=== PATIENT | born 2000 | race Caucasian/White ===

== ENCOUNTER 2021-06-21 15:16 | Inpatient (IN) | payer MEDICAID, OTHER ==
--- NOTE | 2021-06-21 16:06 | ED ---
Psych HPI - General Source: patient, RN notes reviewed Mode of arrival: ambulatory Limitations: no limitations <Brian Martinez - Last Filed: 06/21/21 16:05> <Jhoan Carlos - Last Filed: 06/21/21 22:23> - General Chief Complaint: Psychiatric Symptoms Stated Complaint: Mental Health - History of Present Illness Initial Comments: 21-year-old presents emergency department for psychiatric treatment. Patient states that been having increasing depression recently having suicidal thoughts states plan was to [place] himself [place]. Patient states she's been multiple psychiatric medication has not been on recently. Patient occasionally uses marijuana no other illicit drug use. Rare alcohol use. Patient has no physical complaints. (Brian Martinez) - Related Data Home Medications Medication Instructions Recorded Confirmed Levothyroxine Sodium [Synthroid] 75 mcg PO DAILY 06/21/21 06/21/21 Allergies Allergy/AdvReac Type Severity Reaction Status Date / Time quetiapine [From Seroquel] AdvReac tachycardia Verified 06/21/21 20:45 Review of Systems ROS Other: All systems not noted in ROS Statement are negative. <Brian Martinez - Last Filed: 06/21/21 16:05> ROS Other: All systems not noted in ROS Statement are negative. <Jhoan Carlos - Last Filed: 06/21/21 22:23> ROS Statement: Those systems with pertinent positive or pertinent negative responses have been documented in the HPI. Past Medical History Past Medical History: Thyroid Disorder History of Any Multi-Drug Resistant Organisms: None Reported Past Surgical History: No Surgical Hx Reported Past Psychological History: Anxiety, Depression, Schizoaffective Disorder Smoking Status: Current every day smoker Past Alcohol Use History: Occasional Past Drug Use History: Marijuana <Brian Martinez - Last Filed: 06/21/21 16:05> General Exam Limitations: no limitations <Brian Martinez - Last Filed: 06/21/21 16:05> Course Vital Signs 06/21/21 16:00 Temperature 98.0 F Pulse Rate 84 Respiratory 20 Rate Blood Pressure 127/69 O2 Sat by Pulse 100 Oximetry Medical Decision Making <Jhoan Carlos - Last Filed: 06/21/21 22:23> - Medical Decision Making The patient was seen and examined. Urine drug screen is negative. It is felt as though he is medically cleared for further psychiatric evaluation and treatment. The case is discussed with the psychiatric nurse and they would like to admit the patient to the hospital for further treatment. Patient is agreeable with this plan as well and signs and voluntarily. (Jhoan Carlos) - Lab Data Lab Results 06/21/21 Range/Units 19:30 Urine Opiates Screen Not Detected (NotDetected) Ur Oxycodone Screen Not Detected (NotDetected) Urine Methadone Screen Not Detected (NotDetected) Ur Propoxyphene Screen Not Detected (NotDetected) Ur Barbiturates Screen Not Detected (NotDetected) U Tricyclic Antidepress Not Detected (NotDetected) Ur Phencyclidine Scrn Not Detected (NotDetected) Ur Amphetamines Screen Not Detected (NotDetected) U Methamphetamines Scrn Not Detected (NotDetected) U Benzodiazepines Scrn Not Detected (NotDetected) Urine Cocaine Screen Not Detected (NotDetected) U Marijuana (THC) Screen Not Detected (NotDetected) Disposition <Brian Martinez - Last Filed: 06/21/21 16:05> Is patient prescribed a controlled substance at d/c from ED?: No Time of Disposition: 22:23 Decision Date: 06/21/21 Decision Time: 22:23 <Jhoan Carlos - Last Filed: 06/21/21 22:23> Clinical Impression: Depression, Suicidal ideation Disposition: ADMITTED IP TO THIS HOSP Condition: Fair Referrals: None,Stated [Primary Care Provider] - 1-2 days
[2021-06-21 20:14] LABS: Amphetamine Screen,Urine Not Detected (NotDetected); Barbiturate Screen,Urine Not Detected (NotDetected); Benzodiazepines Screen,Urine Not Detected (NotDetected); Cocaine Screen,Urine Not Detected (NotDetected); Methadone Screen, Urine Not Detected (NotDetected); Opiate Screen,Urine Not Detected (NotDetected); Oxycodone Screen, Urine Not Detected (NotDetected); Phencyclidine Screen,Urine Not Detected (NotDetected); Tricyclic Antidepressant,Urine Not Detected (NotDetected); Urn Cannabinoid Scrn Not Detected (NotDetected)
[2021-06-21] MEDS ORDERED: MAG HYDROX/AL HYDROX/SIMETH 30 ML CUP PO PRN (23:29)
[2021-06-21] MEDS ORDERED: MAGNESIUM HYDROXIDE 2,400 MG/10 ML CUP PO PRN (23:29)
[2021-06-21] MEDS ORDERED: ACETAMINOPHEN TAB 325 MG TAB PO PRN (23:29)
[2021-06-21] MEDS ORDERED: traZODone HCL 50 MG TAB PO PRN (23:35)
[2021-06-21] MEDS ORDERED: haloperidoL 5 MG TAB PO PRN (23:35)
[2021-06-21] MEDS ORDERED: HALOPERIDOL LACTATE 5 MG/ML 1 ML VIAL IM PRN (23:35)
[2021-06-21] MEDS ORDERED: LORazepam 2 MG/ML INJ IM PRN (23:35)
--- NOTE | 2021-06-22 01:13 | P.MDCNMH ---
History of Present Illness H&P Date: 06/22/21 Chief Complaint: medical evaluation 21 year old with mental health medical history of depression, anxiety, schizophrenia , and medical history of hashimotos wtih hypothyroid, and asthma comes in today for suicidal ideation and depression . patient admits to not being compliant with his meds. otherwise denies any medical concerns at this time, denies any fever, chills, URI symptoms, chest pain , SOB, abd pain , nausea or vomiting Review of Systems Pertinent positives as noted in HPI. All other systems were reviewed and are negative Past Medical History Past Medical History: Thyroid Disorder History of Any Multi-Drug Resistant Organisms: None Reported Past Surgical History: No Surgical Hx Reported Past Psychological History: Anxiety, Depression, Schizoaffective Disorder Smoking Status: Never smoker Past Alcohol Use History: Occasional Past Drug Use History: Marijuana - Past Family History Family Family Medical History: No Reported History Medications and Allergies Home Medications Medication Instructions Recorded Confirmed Type Levothyroxine Sodium [Synthroid] 75 mcg PO DAILY 06/21/21 06/21/21 History Allergies Allergy/AdvReac Type Severity Reaction Status Date / Time quetiapine [From Seroquel] AdvReac tachycardia Verified 06/21/21 20:45 Physical Exam Vitals: Vital Signs Temp Pulse Pulse Resp BP BP Pulse Ox 06/22/21 00:17 98.3 F 72 18 122/68 100 06/21/21 16:00 98.0 F 84 20 127/69 100 Intake and Output 06/21/21 06/21/21 06/22/21 14:59 22:59 06:59 Other: Weight 54.431 kg 54 kg Constitutional: No acute distress, conversant, pleasant Eyes: Anicteric sclerae, moist conjunctiva, Pupils equal round reactive to light ENMT: NC/AT Oropharynx clear, no erythema, or exudates Neck: Supple, no masses, or JVD No carotid bruits No thyromegaly Lungs: Clear to auscultation Clear to percussion Normal respiratory effort, no accessory muscle use Cardiovascular: Heart regular in rate and rhythm, No murmurs, gallops, or rubs No peripheral edema Abdominal: Soft Nontender, no guarding, rebound or rigidity Abdomen moving with respiration Normoactive bowel sounds No hepatomegaly, No splenomegaly No palpable mass No abdominal wall hernia noted Skin: Normal temperature, tone, texture, turgor No induration No subcutaneous nodules No rash, lesions No ulcers Extremities: No digital cyanosis No clubbing Pedal pulses intact and symmetrical Radial pulses intact and symmetrical No calf tenderness Psychiatric: Alert and oriented to person, place and time Neuro Muscles Strength 5/5 in all 4 extremities Sensation to light touch grossly present throughout Cranial nerves II-XII grossly intact No focal sensory deficits Lymphatics: no palpable cervical or supraclavicular , or inguinal lymph nodes Cranial Nerve Examination - Cranial Nerves Cranial Nerve II- Optic: Intact Cranial Nerve III- Oculomotor: Intact Cranial Nerve IV- Trochlear: Intact Cranial Nerve V- Trigeminal: Intact Cranial Nerve - Abducens: Intact Cranial Nerve VII- Facial: Intact Cranial Nerve VIII- Auditory: Intact Cranial Nerve IX- Glossopharyngeal: Intact Cranial Nerve X- Vagus: Intact Cranial Nerve XI- Accessory: Intact Cranial Nerve XII- Hypoglossal: Intact Assessment and Plan Assessment: Depression and suicidal ideation Management per psych Hypothyroid with history of Shemar's thyroiditis Continue with levothyroxine Intermittent asthma proair inhalers as needed Follow-up labs Thank you for allowing us to participate in the care of this patient. We will follow peripherally. Do not hesitate to contact us with questions. Someone can be reached from the [facility] hospitalist group at all hours of the day at [phone].
[2021-06-22] MEDS ORDERED: ALBUTEROL INHALER 60 PUFF/8 GM INHALER (MHU) INHALATION PRN (01:15)
[2021-06-22] MEDS: LEVOTHYROXINE 75 MCG TAB PO SCH (06:30)
[2021-06-22] MEDS: NICOTINE 14MG/24HR PATCH TRANSDERM SCH (08:16)
[2021-06-22 09:18] LABS: Basophils # (A) 0.1 k/uL (0-0.2); Basophils % (A) 1 %; Eosinophils # (A) 0.2 k/uL (0-0.7); Eosinophils % (A) 2 %; HCT 41.3 % (39.0-53.0); HGB 13.3 gm/dL (13.0-17.5); Lymphocytes % (A) 41 %; MCH 29.8 pg (25.0-35.0); MCHC 32.1 g/dL (31.0-37.0); MCV 92.8 fL (80.0-100.0); Mean Platelet Volume 7.5; Monocytes # (A) 0.5 k/uL (0-1.0); Monocytes % (A) 7 %; Neutrophils # (A) 3.4 k/uL (1.3-7.7); Neutrophils % (A) 46 %; Platelet Count 424 k/uL (150-450); RBC 4.45 m/uL (4.30-5.90); RDW 11.6 % (11.5-15.5); WBC 7.3 k/uL (3.8-10.6)
[2021-06-22 09:28] LABS: ALT 16 U/L (4-49); AST 24 U/L (17-59); African American GFR (CKD) 143 (>60 ml/min/1.73 sqM); Albumin 4.5 g/dL (3.5-5.0); Alkaline Phosphatase 48 U/L (38-126); Anion Gap 10 mmol/L; Blood Urea Nitrogen 8 mg/dL (9-20); Calcium 10.2 mg/dL (8.4-10.2); Carbon Dioxide 25 mmol/L (22-30); Chloride 106 mmol/L (98-107); Glucose 132 mg/dL (74-99); Non-African American GFR(CKD) 124 (>60 ml/min/1.73 sqM); Potassium 4.8 mmol/L (3.5-5.1); Sodium 141 mmol/L (137-145); Total Bilirubin 0.9 mg/dL (0.2-1.3); Total Protein 7.8 g/dL (6.3-8.2)
[2021-06-22] MEDS ORDERED: SERTRALINE 25 MG TAB PO STA (10:09)
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
[2021-06-22 14:29] LABS: Chol/HDL Ratio 3.65 Ratio; LDL Cholesterol,Calculated 80.3 mg/dL (0.0-131.0); VLDL Calculation 17.68 mg/dL (5.00-40.00)
[2021-06-22] MEDS ORDERED: PRAZOSIN 1 MG CAP PO SCH (21:00)
[2021-06-23] MEDS: LEVOTHYROXINE 75 MCG TAB PO SCH (06:37)
[2021-06-23] MEDS: NICOTINE 14MG/24HR PATCH TRANSDERM SCH (08:44)
[2021-06-23] MEDS ORDERED: SERTRALINE 50 MG TAB PO SCH (09:00)
--- NOTE | 2021-06-23 09:43 | P.PN ---
Progress Note - Text Progress Note Date: 06/23/21 Interval History: Patient was seen resting in bed and was directable and agreeable to speak with rfp writer in their room. Currently, the patient is not endorsing any suicidal or homicidal ideation, intention, and/or plan. They report no auditory or visual hallucinations. The patient does report that they have been feeling some nausea secondary to trazodone. Otherwise the patient is not reporting any significant issues. They do report that it took some time to fall asleep however once asleep, the patient was able to sleep through the night. They deny any issues regarding appetite. Mental Status Exam: General Appearance: Patient appears to be stated age is alert, directable, and cooperative. Multiple tattoos. Notable facial hair. Behavior: Patient is calmly seated without any agitated behavior. Speech: Patient's speech is fluent and nonpressured. Mood/Affect: Mood is improving mildly, affect is congruent and constricted. Suicidality/Homicidality: Patient denies having any suicidal or homicidal ideation intent or plan. Perceptions: Patient denies any visual hallucinations and denies any auditory hallucinations Though content/process: There is no evidence of any delusional thought content and thought process is linear and goal-directed. Memory and concentration: AOX3, grossly intact for the purposes of this session Judgment and insight: Improving mildly Vital Signs Temp 98.1 F 06/22/21 08:16 Pulse 95 06/22/21 21:53 Resp 16 06/22/21 21:53 BP 125/82 06/22/21 21:53 Pulse Ox 99 06/22/21 21:53 Laboratory Results - Last 24 Hours 06/22/21 06/22/21 08:50 08:[address] Glu mg/dL 100 Triglycerides 88.40 Cholesterol 135.00 LDL Cholesterol, Calc 80.3 VLDL Cholesterol, Calc 17.68 HDL Cholesterol 37.00 L Cholesterol/HDL Ratio 3.65 TSH 6.330 H Assessment Major depressive disorder, recurrent, severe Posttraumatic stress disorder Gender dysphoria Cluster B personality disorder Plan: -Patient continues to meet criteria for inpatient psychiatric admission for symptom stabilization and safety. Patient has signed adult voluntary form and medication consent and was placed in patient's chart. -Medications: Zoloft will be increased to 50 mg by mouth daily for depression/anxiety/PTSD Prazosin will be increased to 2 mg daily at bedtime for PTSD related nightmares Discontinue trazodone due to nausea -We will add Zofran as needed for nausea -When necessary Ativan and Haldol for agitation/aggression. -SW on board for discharge planning. Encouraged the patient to participate in milieu.
[2021-06-23] MEDS: ONDANSETRON 4 MG TAB PO PRN (10:05)
[2021-06-23] MEDS: PRAZOSIN 1 MG CAP PO SCH (20:57)
[2021-06-23] MEDS: LORazepam 1 MG TAB PO PRN (23:14)
[2021-06-24] MEDS ORDERED: SERTRALINE 25 MG TAB PO SCH (09:00)
[2021-06-24] MEDS: NICOTINE 14MG/24HR PATCH TRANSDERM SCH (09:02)
[2021-06-24] MEDS: ONDANSETRON 4 MG TAB PO PRN (09:04)
[2021-06-24] MEDS: LEVOTHYROXINE 50 MCG TAB PO SCH ×2 (09:05→09:24)
[2021-06-24] MEDS ORDERED: SERTRALINE 50 MG TAB PO STA (09:32)
--- NOTE | 2021-06-24 11:10 | P.PN ---
Progress Note - Text Progress Note Date: 06/24/21 Interval History: Patient was seen resting in bed and was directable and agreeable to speak with instructional writer in the office. The patient reports they had experienced nausea again last night. Along with the nausea the patient experiences palpitations. Heart rate last night was noted to be 130 BPM. The symptoms were alleviated with the administration of ativan. The patient reports no suicidal or homicidal ideation, intention, and/or plan. They state they had thoughts during the panic attack but none currently. They report no auditory or visual hallucinations. They deny any side effects of the medications at this time. Mental Status Exam: General Appearance: Patient appears to be stated age is alert, directable, and cooperative. Multiple tattoos. Notable facial hair. Wearing a onesie. Behavior: Patient is calmly seated without any agitated behavior. Speech: Patient's speech is fluent and nonpressured. Mood/Affect: Mood is improving mildly, affect is congruent and constricted. Suicidality/Homicidality: Patient denies having any suicidal or homicidal ideation intent or plan. Perceptions: Patient denies any visual hallucinations and denies any auditory hallucinations Though content/process: There is no evidence of any delusional thought content and thought process is linear and goal-directed. Memory and concentration: AOX3, grossly intact for the purposes of this session Judgment and insight: Improving mildly Vital Signs Temp 97.8 F 06/23/21 10:22 Pulse 130 06/23/21 23:00 Resp 16 06/23/21 23:00 BP 111/76 06/23/21 23:00 Pulse Ox 98 06/23/21 23:00 Laboratory Results - Last 24 Hours 06/22/21 08:50 Free T4 1.830 H Assessment Major depressive disorder, recurrent, severe Posttraumatic stress disorder Panic Disorder Gender dysphoria Cluster B personality disorder Plan: -Patient continues to meet criteria for inpatient psychiatric admission for symptom stabilization and safety. Patient has signed adult voluntary form and medication consent and was placed in patient's chart. -Medications: Zoloft will be increased to 150 mg by mouth daily for depression/anxiety/PTSD Prazosin will be continued at 2 mg daily at bedtime for PTSD related nightmares -We will add Zofran as needed for nausea -When necessary Ativan and Haldol for anxiety/agitation/aggression. -SW on board for discharge planning. Encouraged the patient to participate in milieu.
[2021-06-24] MEDS: PRAZOSIN 1 MG CAP PO SCH (21:14)
[2021-06-24] MEDS: LORazepam 1 MG TAB PO PRN (21:14)
[2021-06-25] MEDS: LEVOTHYROXINE 50 MCG TAB PO SCH (06:03)
[2021-06-25] MEDS: SERTRALINE 50 MG TAB PO SCH (09:50)
[2021-06-25] MEDS: NICOTINE 14MG/24HR PATCH TRANSDERM SCH (09:50)
--- NOTE | 2021-06-25 11:22 | P.PN ---
Progress Note - Text Progress Note Date: 06/25/21 Interval History: Patient was seen resting in bed and was directable and agreeable to speak with production underwriter in the office. Patient reports that they are suicidal with a plan to hang himself this weekend. They state that this was the initial plan as they were going to hang himself once their went to work and the patient is able to withdraw the money that his aide to them to leave to their . The patient expresses significant concern for discharge. They state they are unable to keep safe this weekend. The patient reports elevated anxiety. They otherwise deny any auditory or visual hallucinations. They report no homicidal ideation, intention, and/or plan. No side effects of the medications are endorsed today. Mental Status Exam: General Appearance: Patient appears to be stated age is alert, directable, and cooperative. Multiple tattoos. Notable facial hair. Behavior: Patient is calmly seated without any agitated behavior. Speech: Patient's speech is fluent and nonpressured. Mood/Affect: Mood is improving mildly, affect is congruent and constricted. Suicidality/Homicidality: Patient endorses suicidal ideation with a plan. No homicidal ideation. Perceptions: Patient denies any visual hallucinations and denies any auditory hallucinations Though content/process: There is no evidence of any delusional thought content and thought process is linear and goal-directed. Memory and concentration: AOX3, grossly intact for the purposes of this session Judgment and insight: Improving mildly Vital Signs Temp 97.8 F 06/23/21 10:22 Pulse 74 06/24/21 21:11 Resp 16 06/24/21 21:11 BP 126/74 06/24/21 21:11 Pulse Ox 100 06/24/21 21:11 Laboratory Results - Last 24 Hours 06/22/21 08:50 Hemoglobin A1c 5.1 Assessment Major depressive disorder, recurrent, severe Posttraumatic stress disorder Panic Disorder Gender dysphoria Cluster B personality disorder Plan: -Patient continues to meet criteria for inpatient psychiatric admission for symptom stabilization and safety. Patient has signed adult voluntary form and medication consent and was placed in patient's chart. -Medications: Zoloft will be increased to 150 mg by mouth daily for depression/anxiety/PTSD and titrated to 200 mg over the weekend. Prazosin will be continued at 2 mg daily at bedtime for PTSD related nightmares -We will add Zofran as needed for nausea -When necessary Ativan and Haldol for anxiety/agitation/aggression. -SW on board for discharge planning. Encouraged the patient to participate in milieu.
[2021-06-25] MEDS: LORazepam 1 MG TAB PO PRN (20:44)
[2021-06-25] MEDS: PRAZOSIN 1 MG CAP PO SCH (20:44)
[2021-06-26] MEDS: LEVOTHYROXINE 50 MCG TAB PO SCH (06:46)
[2021-06-26] MEDS: SERTRALINE 50 MG TAB PO SCH (09:04)
[2021-06-26] MEDS: NICOTINE 14MG/24HR PATCH TRANSDERM SCH (09:04)
--- NOTE | 2021-06-26 21:00 | PN ---
PROGRESS NOTE DATE OF SERVICE: 06/26/2021. CHIEF COMPLAINT: The patient was admitted for depression, anxiety and suicidal thinking. INTERVAL HISTORY: The patient has been doing fair. He had a quiet day yesterday. He comes out on the unit. He wanders about. He will interact with others. He has been cooperative with care. He attends groups and seems to engage well in groups. He said he slept fair last night. Today he has been up and overall doing about the same. His main complaint is that he feels the Zoloft has caused him a lot of side effects. He says he gets highly anxious, he gets some GI distress, he gets tremor. He declined taking the Zoloft today. He accepts the idea that he has a diagnosis of depression and could see that an antidepressant would be a critical medication for him, though he does feel that Zoloft has been causing him too many problems that he simply cannot tolerate. He does say that he had been on Lexapro perhaps about a year ago and felt that that medication was helpful for him. He would be willing to start Lexapro or consider an alternative. MENTAL STATUS EXAM: Patient was somewhat restless. He gave good eye contact. He answered questions appropriately. His thoughts were clear, coherent and goal-directed. He was spontaneous and interactive. His affect was somewhat constricted. He had an anxious manner. His mood was depressed. He was moderately distressed. There was no indication of thought disorder. He voiced no thoughts of harm. Cognition was clear. ASSESSMENT: I will continue the current diagnosis and treatment plan. The patient has been making a good effort in the group situations. He is declining to be continued on Zoloft. I will discontinue Zoloft and start Lexapro 10 mg a day; he will receive his first dose in the morning. I reviewed medication issues with the patient, including indications, potential side effects and general treatment process. I also reviewed that the success rate with antidepressants does have some limitations and he may need to be tried on alternatives to find a medication that is fully effective for him. It is not unreasonable to continue with Lexapro as an alternative. We will focus on stabilization and discharge planning. MARCELLE / ELODIAN: [id number] /
[2021-06-26] MEDS: LORazepam 1 MG TAB PO PRN (21:31)
[2021-06-26] MEDS: PRAZOSIN 1 MG CAP PO SCH (21:31)
[2021-06-27] MEDS: LEVOTHYROXINE 50 MCG TAB PO SCH (06:32)
[2021-06-27] MEDS: ESCITALOPRAM 10 MG TAB PO SCH (08:51)
[2021-06-27] MEDS: NICOTINE 14MG/24HR PATCH TRANSDERM SCH (08:51)
[2021-06-27] MEDS ORDERED: SERTRALINE 100 MG TAB PO SCH (09:00)
--- NOTE | 2021-06-27 13:51 | PN ---
PROGRESS NOTE DATE OF SERVICE: 06/27/2021. CHIEF COMPLAINT: The patient was admitted for depression, anxiety and suicidal. INTERVAL HISTORY: Patient has been doing fair. He had a quiet day yesterday. He comes out on the unit. He does interact with others. He has been attending groups and seems to engage in a positive way in the groups. He said he had a fair evening last night. He slept reasonably well. Today he has been up. He received his first dose of Lexapro today. He has not had any problems with the start of Lexapro. It is noted that we switched from Zoloft to Lexapro as he declined the Zoloft yesterday because of a range of side effects including GI and other issues. He said that he had been on Lexapro in the past and did not recall any difficulties he had with the medication. He also thought it had been helpful in the past. MENTAL STATUS EXAM: Patient gave a good eye contact. He answered questions with direct responses. His thoughts were clear. He was spontaneous. His affect was a little blunted. His mood was quiet. He did not appear to be significantly distressed. There was no indication of thought disorder. Cognition was clear. ASSESSMENT: I will continue the current diagnosis and treatment plan. The patient received his 1st dose of direct Lexapro. I discussed that there might be consideration after a few days on Lexapro to increase the dose to 20 mg a day or potentially continue in 10 mg and defer to outpatient follow. We discussed the treatment process with antidepressants. We will focus on stabilization and discharge planning. MMCHANEL / ANTHONY: [id number] /
[2021-06-27] MEDS: polyethylene glycoL 3350 17 GM POWD.PACK PO SCH (14:01)
[2021-06-27] MEDS: PRAZOSIN 1 MG CAP PO SCH (20:47)
[2021-06-27] MEDS: LORazepam 1 MG TAB PO PRN (20:47)
[2021-06-28] MEDS: LEVOTHYROXINE 50 MCG TAB PO SCH (06:23)
[2021-06-28] MEDS: NICOTINE 14MG/24HR PATCH TRANSDERM SCH (08:54)
[2021-06-28] MEDS: ESCITALOPRAM 10 MG TAB PO SCH (08:55)
[2021-06-28] MEDS: polyethylene glycoL 3350 17 GM POWD.PACK PO SCH (08:55)
[2021-06-28 08:56] VITALS: BP 115/60; PULSE 77; RESP 16; TEMP 97.2
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
== END 2021-06-28 13:45 | disposition home or self-care (01) | DRG 880 ==
LOC: EC 15:16 → 3MHU 22:40
PROVIDERS: ADMIT Psychiatry & Neurology Psychiatry; ATTEND Psychiatry & Neurology Psychiatry
DX: R45.851 Suicidal ideations (principal); F33.2 Major depressive disorder, recurrent severe without psychotic features; F25.9 Schizoaffective disorder, unspecified; F43.10 Post-traumatic stress disorder, unspecified; F64.0 Transsexualism; F60.89 Other specific personality disorders; Z62.810 Personal history of physical and sexual abuse in childhood; Z91.51 Personal history of suicidal behavior; Z91.14 Patient's other noncompliance with medication regimen; Z20.822 Contact with and (suspected) exposure to COVID-19
CPT/HCPCS: 80053; 80061; 80306; 82075; 83036; 84439; 84443; 85025; 87635; 99285

== ENCOUNTER → 2021-09-20 | Outpatient (CLI) | payer SELFPAY ==
[2021-09-20 18:50] LABS: Blood Urea Nitrogen 10.3 mg/dL (9.0-27.0); Chol/HDL Ratio 4.06 Ratio; Glucose 85 mg/dL (70-110); VLDL Calculation 17.24 mg/dL (5.00-40.00)
== END | disposition home or self-care (01) ==
LOC: LABWHC1 13:53
PROVIDERS: ATTEND Psychiatry & Neurology Psychiatry
DX: F33.3 Major depressive disorder, recurrent, severe with psychotic symptoms (principal); Z79.899 Other long term (current) drug therapy
CPT/HCPCS: 36415; 80061; 80178; 82565; 82947; 83036; 84439; 84443; 84520